=== PATIENT | female | born 1985 | race Caucasian/White ===

== ENCOUNTER 2020-07-01 20:43 | Emergency (ER) | payer SELFPAY ==
[2020-07-01] MEDS ORDERED: TORAdol 30 mg Injection IM ONE (21:00)
[2020-07-01] MEDS ORDERED: Augmentin 875-125 Tablet PO ONE (21:00)
[2020-07-01] MEDS ORDERED: Augmentin 875-125 Tablet ONE (21:03)
[2020-07-01] MEDS ORDERED: TORAdol 30 mg Injection ONE (21:03)
--- NOTE | 2020-07-01 21:06 | ERPHSYRPT ---
- History of Present Illness Time Seen by Provider: 07/01/20 21:01 Source: patient Exam Limitations: no limitations Physician History: 35 years old female presented in the ER with chief complaint of left ear pain since yesterday. Patient woke up with some irritation in the ear and removed some wax with a Q-tip and started to have pain. Denies any discharge. No fever or chills reported. Patient is also having swollen left neck gland causing pain in the neck and head, moderate intensity, aggravated with movements of the neck no significant relieving factor. Denies any hearing loss. No sore throat sinus congestion, fever or chills reported. Denies any sick contact. Timing/Duration: abrupt onset, yesterday Severity: moderate ENT Location: ear (L) Prearrival Treatment: no prearrival treatment Associated Symptoms: ear pain (L), headache, neck pain, swollen glands, No cough, No fever, No chills, No ear drainage Allergies/Adverse Reactions: No Known Drug Allergies Allergy (Verified 07/01/20 20:54) Hx Tetanus, Diphtheria Vaccination/Date Given: No Hx Influenza Vaccination/Date Given: No Hx Pneumococcal Vaccination/Date Given: No - Review of Systems Constitutional: No Symptoms Eyes: No Symptoms Ears, Nose, & Throat: Ear Pain Respiratory: No Symptoms Cardiac: No Symptoms Abdominal/Gastrointestinal: No Symptoms Genitourinary Symptoms: No Symptoms Musculoskeletal: No Symptoms Skin: No Symptoms Neurological: No Symptoms Endocrine: No Symptoms - Past Medical History Pertinent Past Medical History: Yes Neurological History: No Pertinent History ENT History: No Pertinent History Cardiac History: No Pertinent History Respiratory History: No Pertinent History Endocrine Medical History: No Pertinent History Musculoskeletal History: No Pertinent History GI Medical History: No Pertinent History History: No Pertinent History Psycho-Social History: No Pertinent History Female Reproductive Disorders: No Pertinent History Other Medical History: polycystic ovarys - Past Surgical History Past Surgical History: No Neuro Surgical History: No Pertinent History Cardiac: No Pertinent History Respiratory: No Pertinent History Gastrointestinal: No Pertinent History Genitourinary: No Pertinent History Musculoskeletal: No Pertinent History Female Surgical History: No Pertinent History Other Surgical History: left knee surgery - Social History Smoking Status: Current every day smoker How long have you smoked: 18 Exposure to second hand smoke: Yes Drug Use: marijuana Patient Lives Alone: No - Physical Exam General Appearance: no apparent distress, alert Eye Exam: bilateral eye: normal inspection, PERRL, EOMI Ear Exam: right ear: canal normal, TM normal, left ear: erythema, swelling, tenderness, TM red, bilateral ear: auricle normal Nasal Exam: normal inspection Throat Exam: normal, pharynx normal Neck Exam: normal inspection, supple, full range of motion, lymphadenopathy (L) Cardiovascular/Respiratory Exam: chest non-tender, normal breath sounds, regular rate/rhythm Neurologic Exam: alert, oriented x 3, cooperative, water filter cleaner II-XII nml as tested, normal mood/affect Skin Exam: normal color SpO2 Interpretation: normal O2 Delivery: Room Air - Progress Progress: pain not gone completely Progress Note: 07/01/20 21:03 Has left otitis media and mild irritation of external canal but no signs of otitis externa. She is given Toradol and started on Augmentin. Outpatient follow-up recommended. Counseled pt/family regarding: diagnosis, need for follow-up - Departure Departure Disposition: Home Clinical Impression: Acute otitis media Qualifiers: Otitis media type: unspecified Qualified Code(s): H66.90 - Otitis media, unspecified, unspecified ear Condition: Stable Critical Care Time: No Referrals: JESSICA GALLEGO [Primary Care Provider] - Follow Up with PCP/3 days Instructions: Serous Otitis Media (DC) Additional Instructions: Use Tylenol/ibuprofen as needed. Follow-up with primary care physician for reevaluation. Return to ER for any worsening. Prescriptions: Ibuprofen 600 mg PO Q6HPRN PRN 10 Days #20 tablet PRN Reason: Pain Amox Tr/Potass Clav. 875 mg [Augmentin 875-125 Tablet] 875 mg PO BID 10 Days #20 tablet
[2020-07-01 21:14] VITALS: BP 119/82; PULSE 65; O2SAT 98
== END 2020-07-01 21:21 | disposition home or self-care (01) ==
LOC: ED 20:43
DX: H66.92 Otitis media, unspecified, left ear (principal)
CPT/HCPCS: 96372; 99283; J1885; A9270-GY

== ENCOUNTER 2021-04-16 18:20 | Emergency (ER) | payer OTHER ==
--- NOTE | 2021-04-16 18:23 | ERPHSYRPT ---
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 She recalls working and it being very hot. The next thing she knew she woke up and people around her asking her questions. Patient states that she feels well now. Patient denies chest pain. She denies abdominal pain. She has no shortness of breath. She has no visual changes. She is not on any anticoagulation therapy. Occurred: just prior to arrival Severity: mild Head Injury Location: occipital Method of Injury: fell Loss of Consciousness: brief (seconds) Associated Symptoms: denies symptoms Allergies/Adverse Reactions: No Known Drug Allergies Allergy (Verified 07/01/20 20:54) Home Medications: No Reportable Medications [No Reported Medications] 04/16/21 [History] Hx Tetanus, Diphtheria Vaccination/Date Given: No Hx Influenza Vaccination/Date Given: No Hx Pneumococcal Vaccination/Date Given: No Travel Risk - International Travel Have you traveled outside of the country in past 3 weeks: No - Coronavirus Screening Are you exhibiting any of the following symptoms?: No Close contact with a COVID-19 positive Pt in past 14-21 Days: No - Review of Systems Constitutional: No Symptoms Eyes: No Symptoms Ears, Nose, & Throat: No Symptoms Respiratory: No Symptoms Cardiac: No Symptoms Abdominal/Gastrointestinal: No Symptoms Genitourinary Symptoms: No Symptoms Musculoskeletal: No Symptoms Skin: No Symptoms Neurological: Headache Psychological: No Symptoms Endocrine: No Symptoms Hematologic/Lymphatic: No Symptoms Immunological/Allergic: No Symptoms All Other Systems: Reviewed and Negative - Past Medical History Pertinent Past Medical History: Yes Neurological History: No Pertinent History ENT History: No Pertinent History Cardiac History: No Pertinent History Respiratory History: No Pertinent History Endocrine Medical History: No Pertinent History Musculoskeletal History: No Pertinent History GI Medical History: No Pertinent History History: No Pertinent History Psycho-Social History: No Pertinent History Female Reproductive Disorders: No Pertinent History Other Medical History: polycystic ovarys - Past Surgical History Past Surgical History: No Neuro Surgical History: No Pertinent History Cardiac: No Pertinent History Respiratory: No Pertinent History Gastrointestinal: No Pertinent History Genitourinary: No Pertinent History Musculoskeletal: No Pertinent History Female Surgical History: No Pertinent History Other Surgical History: left knee surgery - Social History Smoking Status: Current every day smoker How long have you smoked: 18 Exposure to second hand smoke: Yes Drug Use: marijuana Patient Lives Alone: No - Nursing Vital Signs Nursing Vital Signs: Initial Vital Signs Temperature 97.5 F 04/16/21 18:26 Pulse Rate 62 04/16/21 18:26 Respiratory Rate 20 04/16/21 18:26 Blood Pressure 111/77 04/16/21 18:26 O2 Sat by Pulse Oximetry 98 04/16/21 18:26 Pain Scale Pain Intensity 3 - [place] Coma Score Best Eye Response ([place]): (4) open spontaneously Best Verbal Response ([place]): (5) oriented Best Motor Response ([place]): (6) obeys commands [place] Total: 15 - Physical Exam General Appearance: no apparent distress, alert, anxiety Head Injury: no evidence of injury Eye Exam: bilateral eye: normal inspection, PERRL, EOMI ENT Exam: airway nml, nml ext.inspection, No evidence of ENT injury Neck Exam: supple, trachea midline, full range of motion, normal alignment, n ormal inspection Cardiovascular/Respiratory Exam: chest non-tender, no respiratory distress Gastrointestinal/Abdominal Exam: soft, non tender, no distention, no mass, no guarding, no ecchymosis, no organomegaly, no pulsatile mass, normal bowel sounds Pelvic Exam: not done Rectal Exam: not done Back Exam: normal inspection, normal range of motion, No CVA tenderness, No vertebral tenderness Extremity Exam: non-tender, normal range of motion, normal inspection, normal capillary refill, no calf tenderness, no pedal edema, pelvis stable Mental Status Exam: alert, oriented x 3, 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 There is no comparison EKG available.) Ordered Tests: Active Orders 24 hr Category Date Time Status Clean Catch Urine Specimen STAT Care 04/16/21 18:51 Active EKG-ER Only STAT Care 04/16/21 18:51 Active IV Insertion STAT Care 04/16/21 18:51 Active POCT Glucose Check STAT Care 04/16/21 18:51 Active HEAD WITHOUT CONTRAST [CT] Stat Exams 04/16/21 18:51 Taken HCG,QUALITATIVE URINE Stat Lab 04/16/21 19:36 Completed POCT GLUCOSE Stat Lab 04/16/21 19:27 Completed UA W/RFX UR CULTURE Stat Lab 04/16/21 19:36 Completed Urine Triage Profile Stat Lab 04/16/21 19:36 Ordered Medication Summary Discontinued Medications Generic Name Dose Route Start Last Admin Trade Name Freq PRN Reason Stop Dose Admin Sodium Chloride 1,000 mls @ 999 mls/hr 04/16/21 18:51 04/16/21 19:45 Sodium Chloride 0.9% 1000 Ml IV 04/16/21 19:51 Not Given .Q1H1M STA Ondansetron HCl 4 mg 04/16/21 18:51 04/16/21 19:44 Zofran 4 Mg/2 Ml Vial IV 04/16/21 18:52 Not Given STAT ONE Lab/Rad Data: Laboratory Results 04/16/21 04/16/21 04/16/21 Range/Units 19:36 19:36 19:27 POC Glucometer 93 (74 to 106) mg/dL Urine Color STRAW (YELLOW) Urine Appearance CLEAR (CLEAR) Urine pH 6.0 (5-6) Ur Specific [place] 1.004 (1.005-1.025) Urine Protein NEGATIVE (Negative) Urine Ketones NEGATIVE (NEGATIVE) Urine Blood NEGATIVE (0-5) Tahir/ul Urine Nitrite NEGATIVE (NEGATIVE) Urine Bilirubin NEGATIVE (NEGATIVE) Urine Urobilinogen NEGATIVE (0-1) mg/dL Ur Leukocyte Esterase NEGATIVE (NEGATIVE) Urine WBC (Auto) 0-2 (0-5) /HPF Urine RBC (Auto) 0-2 (0-2) /HPF U Epithel Cells (Auto) RARE (FEW) /HPF Urine Bacteria (Auto) RARE (NEGATIVE) /HPF Urine Culture Reflexed NO (NO) Urine Glucose NEGATIVE (NEGATIVE) mg/dL Urine HCG, Qual NEGATIVE (Negative) - Progress Progress: improved, re-examined Progress Note: 04/16/21 19:25 This patient had IV attempted on 2 different occasions. She now declines any more attempts. She does not want any blood drawn. She does agree to provide a urine for urinalysis and test. She also will allow us to obtain a [id number] glucose level. 04/16/21 19:57 CAT scan of the head without contrast shows a small left posterior scalp hematoma otherwise normal and no evidence of any intracranial abnormalities Counseled pt/family regarding: lab results, diagnosis, need for follow-up, rad results - Departure Departure Disposition: Home Clinical Impression: Syncope, Head injury, Scalp hematoma Condition: Stable Critical Care Time: No Referrals: JESSICA GALLEGO [Primary Care Provider] - Additional Instructions: Use Tylenol ibuprofen for pain control. Drink plenty of fluids. Return to the emergency department if nausea and vomiting is present, dizziness is present, severe headache is present. Follow-up with your primary care physician if you have a persistent headache.
[2021-04-16 18:34] VITALS: PULSE 62; O2SAT 98
[2021-04-16] MEDS ORDERED: Zofran 4 MG/2 ML VIAL IV ONE (18:51)
[2021-04-16] MEDS ORDERED: Sodium Chloride 0.9% 1000 ML 1,000 ML IV STA (18:51)
[2021-04-16 19:43] VITALS: BP 104/49
[2021-04-16 19:53] LABS: Appearance CLEAR (CLEAR); Bacteria RARE /HPF (NEGATIVE); Bilirubin NEGATIVE (NEGATIVE); Blood NEGATIVE Ery/ul (0-5); Epithelial Cells RARE /HPF (FEW); Glucose NEGATIVE (NEGATIVE); Ketones NEGATIVE (NEGATIVE); Leukocyte Esterase NEGATIVE (NEGATIVE); Nitrite NEGATIVE (NEGATIVE); Protein,Urine Dip NEGATIVE (Negative); RBC 0-2 /HPF (0-2); Specific Gravity 1.004 (1.005-1.025); Urobilinogen NEGATIVE mg/dL (0-1); WBC 0-2 /HPF (0-5)
[2021-04-16 20:06] LABS: Amphetamine,Urine NEGATIVE (NEGATIVE); Barbiturate,Urine NEGATIVE (NEGATIVE); Benzodiazepine,Urine NEGATIVE (NEGATIVE); Cocaine,Urine NEGATIVE (NEGATIVE); Methadone,Urine NEGATIVE (NEGATIVE); Opiate,Urine NEGATIVE (NEGATIVE); PCP,Urine NEGATIVE (NEGATIVE); THC,Urine NEGATIVE (NEGATIVE)
--- NOTE | 2021-04-17 08:44 | XRAY ---
Indication: Posterior head injury following syncopal episode. Multiple contiguous axial images obtained through the head without contrast. Comparison: None. Left posterior head demonstrates small scalp hematoma near the vertex. Normal appearing brain parenchyma, ventricles, and bony calvarium. Visualized paranasal sinuses and mastoid air cells are clear. Impression: Left posterior scalp hematoma. No underlying fracture or acute intracranial abnormalities.
== END 2021-04-16 20:05 | disposition home or self-care (01) ==
LOC: ED 18:20
DX: R55 Syncope and collapse (principal); S00.03XA Contusion of scalp, initial encounter; W18.39XA Other fall on same level, initial encounter; Y93.89 Activity, other specified; Y92.89 Other specified places as the place of occurrence of the external cause; Y99.0 Civilian activity done for income or pay
CPT/HCPCS: 70450; 80307; 81001; 82947; 84703; 93005; 99284

== ENCOUNTER 2022-11-20 20:23 | Emergency (ER) | payer OTHER, SELFPAY ==
[2022-11-20 20:43] VITALS: O2SAT 98
--- NOTE | 2022-11-20 21:15 | ERPHSYRPT ---
- History of Present Illness Time Seen by Provider: 11/20/22 20:30 Source: patient, [employer] Patient Subjective Stated Complaint: pt states I have been lifting heavy shelves and mats. I think I over did it. I have done this once before Triage Nursing Assessment: pt ambulated into the er; pt is axo x4; c/o rt shoulder pain; good ROM; strong rt radial pulse; good cap refill to RUE; no respiratory distress present; skin PDW; vitals wnl Physician History: Patient here with acute on chronic right shoulder pain. Patient states that whenever she starts lifting heavy objects she feels that she gets pain. States that she currently has been doing some overhead stuff at work. Therefore having pain. No other falls or trauma. No fever no chills. No nausea no vomiting. Patient has no chest pain, shortness of breath. States it is all mechanical and reproducible. Timing/Duration: other Severity: moderate Modifying Factors: Improves With: other Allergies/Adverse Reactions: No Known Drug Allergies Allergy (Verified 11/20/22 20:31) Hx Tetanus, Diphtheria Vaccination/Date Given: Yes Hx Influenza Vaccination/Date Given: No Hx Pneumococcal Vaccination/Date Given: No Immunizations Up to Date: No Travel Risk - International Travel Have you traveled outside of the country in past 3 weeks: No - Coronavirus Screening Are you exhibiting any of the following symptoms?: No Close contact with a COVID-19 positive Pt in past 14-21 Days: No - Vaccine Status Have you recieved a Covid-19 vaccination: Yes [place]: [employer] - Vaccination Dates Date of 2cond Vaccination (if applicable): 02/2021 - Review of Systems Constitutional: No Fever, No Chills Eyes: No Symptoms Ears, Nose, & Throat: No Symptoms Respiratory: No Cough, No Dyspnea Cardiac: No Chest Pain, No Edema, No Syncope Abdominal/Gastrointestinal: No Abdominal Pain, No Nausea, No Vomiting, No Diarrhea Genitourinary Symptoms: No Dysuria Musculoskeletal: Other (right shoulder pain), No Back Pain, No Neck Pain Skin: No Rash Neurological: No Dizziness, No Focal Weakness, No Sensory Changes Psychological: No Symptoms Endocrine: No Symptoms All Other Systems: Reviewed and Negative - Past Medical History Pertinent Past Medical History: Yes Neurological History: No Pertinent History, Migraines ENT History: No Pertinent History Cardiac History: No Pertinent History Respiratory History: No Pertinent History, Asthma, Bronchitis Endocrine Medical History: No Pertinent History Musculoskeletal History: No Pertinent History GI Medical History: No Pertinent History, GERD History: No Pertinent History Psycho-Social History: No Pertinent History, Anxiety, Attention Deficit Disorder Female Reproductive Disorders: No Pertinent History Other Medical History: 1 natural - Past Surgical History Past Surgical History: Yes Neuro Surgical History: No Pertinent History Cardiac: No Pertinent History Respiratory: No Pertinent History Gastrointestinal: No Pertinent History Genitourinary: No Pertinent History Musculoskeletal: No Pertinent History Female Surgical History: No Pertinent History Other Surgical History: L knee sx - Social History Smoking Status: Current every day smoker How long have you smoked: 16 Exposure to second hand smoke: Yes Drug Use: marijuana Patient Lives Alone: No - Female History Hx Now: No - Nursing Vital Signs Nursing Vital Signs: Initial Vital Signs Temperature 97.6 F 11/20/22 20:34 Pulse Rate 67 11/20/22 20:34 Respiratory Rate 16 11/20/22 20:34 Blood Pressure 113/76 11/20/22 20:34 O2 Sat by Pulse Oximetry 98 11/20/22 20:34 Pain Scale Pain Intensity 4 - Physical Exam General Appearance: no apparent distress, alert Eye Exam: PERRL/EOMI, eyes nml inspection Ears, Nose, Throat Exam: normal ENT inspection, TMs normal, pharynx normal, moist mucous membranes Neck Exam: normal inspection, non-tender, supple, full range of motion Respiratory Exam: normal breath sounds, lungs clear, No respiratory distress Cardiovascular Exam: regular rate/rhythm, normal heart sounds, normal peripheral pulses Gastrointestinal/Abdomen Exam: soft, normal bowel sounds, No tenderness, No mass Back Exam: normal inspection, normal range of motion, No CVA tenderness, No vertebral tenderness Extremity Exam: normal range of motion, pelvis stable, other Neurologic Exam: alert, oriented x 3, cooperative, normal mood/affect, nml cerebellar function, nml station & gait, sensation nml, No motor deficits Skin Exam: normal color, warm, dry, No rash Lymphatic Exam: No adenopathy SpO2 Interpretation: normal SpO2: 98 Comments: 11/20/22 21:26 Patient has some minimal right shoulder tenderness. No obvious deformity, s ensation intact, 2+ capillary refill, 2 point tactile discrimination intact. 5 out of 5 strength. Full range of motion without pain. Compartments are soft, nontender. Overlying skin shows no tenting, bruising, ecchymosis. - Course Nursing assessment & vital signs reviewed: Yes Ordered Tests: Active Orders 24 hr Category Date Time Status SHOULDER Stat Exams 11/20/22 20:45 Taken - Progress Progress: improved Progress Note: 11/20/22 21:26 And x-ray was ordered. This demonstrated no obvious fractures, dislocations. Most likely musculoskeletal pain versus small rotator cuff tear. Will discharge patient home at this point in time. She may return here sooner for any new or changing symptoms. Plan for discharge home. Counseled pt/family regarding: diagnosis, need for follow-up, rad results - Departure Departure Disposition: Home Clinical Impression: Right shoulder pain Condition: Good Critical Care Time: No Referrals: JESSICA ANTONIO [Primary Care Provider] - Follow up/PCP as directed Instructions: Shoulder Sprain (DC)
[2022-11-20 21:29] VITALS: BP 131/61; PULSE 64
--- NOTE | 2022-11-21 09:20 | XRAY ---
Indication: Pain. Comparison: None 3 view right shoulder obtained. No bony, articular, or soft tissue abnormalities.
== END 2022-11-20 21:29 | disposition home or self-care (01) ==
LOC: ED 20:23
DX: M25.511 Pain in right shoulder (principal); Z72.0 Tobacco use
CPT/HCPCS: 73030; 99282

== ENCOUNTER 2023-01-31 17:44 | Emergency (ER) | payer OTHER ==
[2023-01-31 18:15] VITALS: O2SAT 98
[2023-01-31 18:43] LABS: Appearance Clear (Clear); Bacteria None Seen /HPF (None Seen); Bilirubin Negative (Negative); Blood Negative (Negative); Epithelial Cells Rare /HPF (None Seen); Glucose, Urine Negative (Negative); Ketones Trace (Negative); Leukocyte Esterase Negative (Negative); Nitrite Negative (Negative); Ph 5.5 (4.6-8.0); Protein,Urine Dip Trace (Negative); RBC 0-2 /HPF (0-5); Specific Gravity >=1.030 (1.005-1.030); WBC 0-2 /HPF (0-5)
[2023-01-31 18:45] LABS: ADD URINE CULTURE? NO (NO)
[2023-01-31 18:54] LABS: Amphetamine,Urine NEGATIVE (NEGATIVE); Barbiturate,Urine NEGATIVE (NEGATIVE); Benzodiazepine,Urine NEGATIVE (NEGATIVE); Cocaine,Urine NEGATIVE (NEGATIVE); Methadone,Urine NEGATIVE (NEGATIVE); Opiate,Urine NEGATIVE (NEGATIVE); PCP,Urine NEGATIVE (NEGATIVE); THC,Urine NEGATIVE (NEGATIVE)
[2023-01-31 18:57] LABS: Absolute Neutrophil Ct (ANC) 4.63 x10^3/uL (1.4-6.9); BASOPHIL % 0.7 % (0.0-0.4); Basophil (Absolute #) 0.05 x10^3/uL (0-0.4); Eosinophil % 4.1 % (0.00-5.0); Eosinophil (Absolute #) 0.31 x10^3/uL (0-0.5); Hematocrit 39.7 % (35-47); Hemoglobin 13.5 g/dL (12.0-16.0); IMMATURE GRAN # 0.03 x10^3u/L (0.00-0.03); IMMATURE GRAN % 0.4 % (0.00-0.4); Lymphocyte (Absolute #) 2.24 x10^3/uL (1.0-4.6); Lymphocytes % 29.3 % (24.0-44.0); Mean Cell Volume 93.4 fL (78-100); Mean Corpuscular Hemoglobin 31.8 pg (26-32); Mean Platelet Volume 10.2 fL (7.5-11.0); Monocyte (Absolute #) 0.38 x10^3/uL (0.0-1.3); Neutrophil % 60.5 % (36.0-66.0); Platelet Count 214 x10^3/uL (150-450); Red Blood Count 4.25 x10^6/uL (4.1-5.4); Red Cell Distribution Width 13.3 % (11.5-14.0); White Blood Count 7.6 x10^3/uL (4.0-10.5)
[2023-01-31 19:12] LABS: HCG SERUM TEST NEGATIVE (NEGATIVE)
[2023-01-31 19:14] LABS: ACETAMINOPHEN < 10 ug/ml (10-30); ALBUMIN 4.1 g/dL (3.5-5.0); ALKALINE PHOSPHATASE 60 U/L (38-126); ANION GAP 13.6 MEQ/L (5-15); BLOOD UREA NITROGEN 14 mg/dL (7-17); CHLORIDE 104 mmol/L (98-107); Carbon Dioxide 27 mmol/L (22-30); Creatinine 1 0.88 mg/dL (0.52-1.04); EST GLOMERULAR FILTRATION RATE > 60.0 ML/MIN; ETHYL ALCOHOL < 10 mg/dL (0-10); Glucose 110 mg/dL (74-106); Potassium 3.5 mmol/L (3.5-5.1); SALICYLATE < 1.0 mg/dL (2-20); SGOT/AST 24 U/L (14-36); SGPT/ALT 17 U/L (0-35); SODIUM 141 mmol/L (137-145); Total Protein 7.1 g/dL (6.3-8.2)
[2023-01-31 19:17] VITALS: PULSE 78
--- NOTE | 2023-01-31 19:19 | ERPHSYRPT ---
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 Triage Nursing Assessment: pt is alert and oriented, able to answer questions appropriatly and states that she is willing to get help. Physician History: 37yo WF w suicidal thoughts x 2 yrs. Wants to "slit her wrist". Pt states p roblems related to her ex-. She has not seen a mental health therapist. Pt used methamphetamine until 6 years ago. She is accompanied by her present and denies domestic abuse. No homicidal thoughts present. Timing/Duration: other (2 years) Severity of Symptoms-Max: moderate Severity of Symptoms-Current: moderate Context related to: other (Ex-) Suicidal thoughts: specific plan (Slit wrists) Associated Symptoms: suicidal ideation Previous symptoms: same symptoms as today Allergies/Adverse Reactions: No Known Drug Allergies Allergy (Verified 11/20/22 20:31) Hx Tetanus, Diphtheria Vaccination/Date Given: Yes Hx Influenza Vaccination/Date Given: No Hx Pneumococcal Vaccination/Date Given: No Travel Risk - International Travel Have you traveled outside of the country in past 3 weeks: No - Coronavirus Screening Are you exhibiting any of the following symptoms?: No Close contact with a COVID-19 positive Pt in past 14-21 Days: No - Vaccine Status Have you recieved a Covid-19 vaccination: Yes [employer]: [employer] - Vaccination Dates Date of 2cond Vaccination (if applicable): 02/2021 - Past Medical History Pertinent Past Medical History: Yes Neurological History: No Pertinent History, Migraines ENT History: No Pertinent History Cardiac History: No Pertinent History Respiratory History: No Pertinent History, Asthma, Bronchitis Endocrine Medical History: No Pertinent History Musculoskeletal History: No Pertinent History GI Medical History: No Pertinent History, GERD History: No Pertinent History Psycho-Social History: No Pertinent History, Anxiety, Attention Deficit Disorder Female Reproductive Disorders: No Pertinent History Other Medical History: 1 natural - Past Surgical History Past Surgical History: Yes Neuro Surgical History: No Pertinent History Cardiac: No Pertinent History Respiratory: No Pertinent History Gastrointestinal: No Pertinent History Genitourinary: No Pertinent History Musculoskeletal: No Pertinent History Female Surgical History: No Pertinent History Other Surgical History: L knee sx - Social History Smoking Status: Current every day smoker How long have you smoked: 16 Exposure to second hand smoke: Yes Drug Use: none Patient Lives Alone: No - Female History Hx Last Menstrual Period: 01/28/23 Hx Now: No - Review of Systems Constitutional: No Symptoms Eyes: No Symptoms Ears, Nose, & Throat: No Symptoms Respiratory: No Symptoms Cardiac: No Symptoms Abdominal/Gastrointestinal: No Symptoms Genitourinary Symptoms: No Symptoms Musculoskeletal: No Symptoms Skin: No Symptoms Neurological: No Symptoms Psychological: Suicidal Ideations Endocrine: No Symptoms Hematologic/Lymphatic: No Symptoms Immunological/Allergic: No Symptoms - Nursing Vital Signs Nursing Vital Signs: Initial Vital Signs Temperature 97.6 F 01/31/23 17:58 Pulse Rate 86 01/31/23 17:58 Respiratory Rate 18 01/31/23 17:58 Blood Pressure 129/104 01/31/23 17:58 O2 Sat by Pulse Oximetry 98 01/31/23 17:58 Pain Scale Pain Intensity 0 Hypertensive - Physical Exam General Appearance: no apparent distress Eyes, Ears, Nose, Throat Exam: normal ENT inspection, TMs normal, pharynx normal Neck Exam: normal inspection, non-tender, supple, full range of motion, No Brudzinski, No Kernig's, No meningismus Respiratory Exam: normal breath sounds, lungs clear, airway intact, No respiratory distress Cardiovascular Exam: regular rate/rhythm, normal heart sounds, normal peripheral pulses, No murmur Gastrointestinal/Abdominal Exam: soft, normal bowel sounds Extremities Exam: normal inspection Peripheral Pulses: carotid (R): 2+, carotid (L): 2+ Current Suicidality: has suicide plan Neurological Exam: alert, normal mood/affect, calm, sole stitcher hand II-XII nml as tested, oriented x 3 Appearance: appropriate appearance, appropriate insight Behavior/Eye Contact/Speech: alert & cooperative Thoughts/Hallucinations: normal thought pattern, no apparent hallucination, No auditory hallucinations Skin Exam: normal color, warm, dry SpO2 Interpretation: normal SpO2: 98 O2 Delivery: Room Air - Course Nursing assessment & vital signs reviewed: Yes Ordered Tests: Active Orders 24 hr Category Date Time Status ACETAMINOPHEN Stat Lab 01/31/23 18:49 Completed CBC W DIFF Stat Lab 01/31/23 18:49 Completed CMP Stat Lab 01/31/23 18:49 Completed ETHYL ALCOHOL Stat Lab 01/31/23 18:49 Completed HCG QUALITATIVE, SERUM Stat Lab 01/31/23 18:57 Completed SALICYLATE Stat Lab 01/31/23 18:49 Completed UA W/RFX UR CULTURE Stat Lab 01/31/23 18:21 Completed Urine Triage Profile Stat Lab 01/31/23 18:21 Completed Lab/Rad Data: Laboratory Result Diagrams 01/31/23 18:49 01/31/23 18:49 Laboratory Results 01/31/23 01/31/23 01/31/23 Range/Units Unknown 18:57 18:49 WBC (4.0-10.5) x10^3/uL RBC (4.1-5.4) x10^6/uL Hgb (12.0-16.0) g/dL Hct (35-47) % MCV (78-100) fL MCH (26-32) pg MCHC (32-36) g/dL RDW (11.5-14.0) % Plt Count (150-450) x10^3/uL MPV (7.5-11.0) fL Gran % (36.0-66.0) % Immature Gran % (Auto) (0.00-0.4) % Nucleat RBC Rel Count (0.00-0.1) % Eos # (Auto) (0-0.5) x10^3/uL Immature Gran # (Auto) (0.00-0.03) x10^3u/L Absolute Lymphs (auto) (1.0-4.6) x10^3/uL Absolute Monos (auto) (0.0-1.3) x10^3/uL Absolute Nucleated RBC (0.00-0.01) x10^3u/L Lymphocytes % (24.0-44.0) % Monocytes % (0.0-12.0) % Eosinophils % (0.00-5.0) % Basophils % (0.0-0.4) % Absolute Granulocytes (1.4-6.9) x10^3/uL Basophils # (0-0.4) x10^3/uL Sodium 141 (137-145) mmol/L Potassium 3.5 (3.5-5.1) mmol/L Chloride 104 (98-107) mmol/L Carbon Dioxide 27 (22-30) mmol/L Anion Gap 13.6 (5-15) MEQ/L BUN 14 (7-17) mg/dL Creatinine 0.88 (0.52-1.04) mg/dL Estimated GFR > 60.0 ML/MIN Glucose 110 H (74-106) mg/dL Calcium 9.0 (8.4-10.2) mg/dL Total Bilirubin 0.50 (0.2-1.3) mg/dL AST 24 (14-36) U/L ALT 17 (0-35) U/L Alkaline Phosphatase 60 (38-126) U/L Serum Total Protein 7.1 (6.3-8.2) g/dL Albumin 4.1 (3.5-5.0) g/dL Serum HCG, Qual NEGATIVE (NEGATIVE) Urine Color (Yellow) Urine Appearance (Clear) Urine pH (4.6-8.0) Ur Specific [place] (1.005-1.030) Urine Protein (Negative) Urine Glucose (UA) (Negative) mg/dL Urine Ketones (Negative) Urine Blood (Negative) Urine Nitrite (Negative) Urine Bilirubin (Negative) Urine Urobilinogen (0.2) mg/dL Ur Leukocyte Esterase (Negative) U Hyaline Cast (Auto) (0-2) /LPF Urine Microscopic RBC (0-5) /HPF Urine Microscopic WBC (0-5) /HPF Ur Epithelial Cells (None Seen) /HPF Urine Bacteria (None Seen) /HPF Urine Culture Reflexed (NO) Salicylates < 1.0 L (2-20) mg/dL Urine Opiates Level (NEGATIVE) Ur Methadone (NEGATIVE) Acetaminophen < 10 L (10-30) ug/ml Urine Barbiturates (NEGATIVE) Ur Phencyclidine (PCP) (NEGATIVE) Urine Amphetamine (NEGATIVE) U Benzodiazepine Level (NEGATIVE) Urine Cocaine (NEGATIVE) Urine Marijuana (THC) (NEGATIVE) Ethyl Alcohol < 10 (0-10) mg/dL Influenza Type A Ag NEGATIVE (NEGATIVE) Influenza Type B Ag NEGATIVE (NEGATIVE) RSV (PCR) NEGATIVE (NEGATIVE) SARS-CoV-2 (PCR) NEGATIVE (NEGATIVE) 01/31/23 01/31/23 01/31/23 Range/Units 18:49 18:21 18:21 WBC 7.6 (4.0-10.5) x10^3/uL RBC 4.25 (4.1-5.4) x10^6/uL Hgb 13.5 (12.0-16.0) g/dL Hct 39.7 (35-47) % MCV 93.4 (78-100) fL MCH 31.8 (26-32) pg MCHC 34.0 (32-36) g/dL RDW 13.3 (11.5-14.0) % Plt Count 214 (150-450) x10^3/uL MPV 10.2 (7.5-11.0) fL Gran % 60.5 (36.0-66.0) % Immature Gran % (Auto) 0.4 (0.00-0.4) % Nucleat RBC Rel Count 0.0 (0.00-0.1) % Eos # (Auto) 0.31 (0-0.5) x10^3/uL Immature Gran # (Auto) 0.03 (0.00-0.03) x10^3u/L Absolute Lymphs (auto) 2.24 (1.0-4.6) x10^3/uL Absolute Monos (auto) 0.38 (0.0-1.3) x10^3/uL Absolute Nucleated RBC 0.00 (0.00-0.01) x10^3u/L Lymphocytes % 29.3 (24.0-44.0) % Monocytes % 5.0 (0.0-12.0) % Eosinophils % 4.1 (0.00-5.0) % Basophils % 0.7 (0.0-0.4) % Absolute Granulocytes 4.63 (1.4-6.9) x10^3/uL Basophils # 0.05 (0-0.4) x10^3/uL Sodium (137-145) mmol/L Potassium (3.5-5.1) mmol/L Chloride (98-107) mmol/L Carbon Dioxide (22-30) mmol/L Anion Gap (5-15) MEQ/L BUN (7-17) mg/dL Creatinine (0.52-1.04) mg/dL Estimated GFR ML/MIN Glucose (74-106) mg/dL Calcium (8.4-10.2) mg/dL Total Bilirubin (0.2-1.3) mg/dL AST (14-36) U/L ALT (0-35) U/L Alkaline Phosphatase (38-126) U/L Serum Total Protein (6.3-8.2) g/dL Albumin (3.5-5.0) g/dL Serum HCG, Qual (NEGATIVE) Urine Color Dark Yellow A (Yellow) Urine Appearance Clear (Clear) Urine pH 5.5 (4.6-8.0) Ur Specific [place] >=1.030 A (1.005-1.030) Urine Protein Trace A (Negative) Urine Glucose (UA) Negative (Negative) mg/dL Urine Ketones Trace A (Negative) Urine Blood Negative (Negative) Urine Nitrite Negative (Negative) Urine Bilirubin Negative (Negative) Urine Urobilinogen 1.0 A (0.2) mg/dL Ur Leukocyte Esterase Negative (Negative) U Hyaline Cast (Auto) 3-5 A (0-2) /LPF Urine Microscopic RBC 0-2 (0-5) /HPF Urine Microscopic WBC 0-2 (0-5) /HPF Ur Epithelial Cells Rare (None Seen) /HPF Urine Bacteria None Seen (None Seen) /HPF Urine Culture Reflexed NO (NO) Salicylates (2-20) mg/dL Urine Opiates Level NEGATIVE (NEGATIVE) Ur Methadone NEGATIVE (NEGATIVE) Acetaminophen (10-30) ug/ml Urine Barbiturates NEGATIVE (NEGATIVE) Ur Phencyclidine (PCP) NEGATIVE (NEGATIVE) Urine Amphetamine NEGATIVE (NEGATIVE) U Benzodiazepine Level NEGATIVE (NEGATIVE) Urine Cocaine NEGATIVE (NEGATIVE) Urine Marijuana (THC) NEGATIVE (NEGATIVE) Ethyl Alcohol (0-10) mg/dL Influenza Type A Ag (NEGATIVE) Influenza Type B Ag (NEGATIVE) RSV (PCR) (NEGATIVE) SARS-CoV-2 (PCR) (NEGATIVE) - Progress Progress Note: 01/31/23 21:14 Nursing note and vital signs reviewed No food or housing insecurities noted All lab results reviewed and shared w pt Additional history per current [facility] consulted and recommended discharge w safety plan Pt ok w outpt follow up and wants her sandwich before discharge 01/31/23 21:18 Counseled pt/family regarding: lab results, diagnosis, need for follow-up Medical Desision Making - Independent Historian Additional History obtained from: Spouse - Discussion of managment Care discussed with:: specialist Agreed on:: Treatment plan, need for follow-up - Social Determinants of Health Pt's dx & treatment plan are significantly limited by SDOH: Unemployed - Diagnostic Testing Diagnostic test were ordered, analyzed, and reviewed by me: Yes - Risk of complications Low Risk: Low risk of morbidity from additional dx testing or treatment - Departure Departure Disposition: Home Clinical Impression: Depression Condition: Stable Critical Care Time: No Referrals: JESSICA ANTONIO [Primary Care Provider] - Follow up/PCP as directed Instructions: Depression, Adult (DC) Additional Instructions: Follow up with the [facility] Return to ER for worsening of condition
[2023-01-31 20:57] LABS: INFLUENZA A NEGATIVE (NEGATIVE); INFLUENZA B NEGATIVE (NEGATIVE); RESPIRATORY SYNCTIAL VIRUS NEGATIVE (NEGATIVE); SARS-CoV-2 Xpert Express NEGATIVE (NEGATIVE)
[2023-01-31 21:17] VITALS: BP 105/80
== END 2023-01-31 21:40 | disposition home or self-care (01) ==
LOC: ED 17:44
DX: F32.A Depression, unspecified (principal); R45.851 Suicidal ideations; Z63.5 Disruption of family by separation and divorce; Z56.0 Unemployment, unspecified; Z72.0 Tobacco use
CPT/HCPCS: 0241U; 36415; 80053; 80143; 80179; 80307; 81001; 82077; 84703; 85025; 99283

== ENCOUNTER 2023-06-25 22:43 | Emergency (ER) | payer OTHER ==
[2023-06-25 23:07] VITALS: TEMP 98.1
[2023-06-26 00:10] VITALS: O2SAT 98
--- NOTE | 2023-06-26 00:22 | ERPHSYRPT ---
- History of Present Illness Time Seen by Provider: 06/26/23 00:18 Historian: patient Patient Subjective Stated Complaint: pt states she has been having intermittent pain in her pelvis radiating up into her abd at times Triage Nursing Assessment: pt alert and oriented, answers questions approp. pt ambulates into room with steady gait noted. respriations nonlabored. skin warm and dry. bowel sounds present x4 quads. Physician History: Patient 38-year-old female presents to our ED for evaluation of intermittent lower abdominal pain that tends to shoot up to her upper abdomen and chest area. Symptoms have been intermittent for approximately 5 days. No active pain at this time. No vaginal discharge or pain. Patient states she feels as though she urinates frequently. No back pain. No nausea vomiting diaphoresis or fever. Patient that she is otherwise healthy. She voices no other complaints or concerns at this time. Portions of this note were created with voice recognition technology. There may be grammatical, spelling, punctuation or sound alike errors Timing/Duration: day(s) (5 days) Activities at Onset: none Quality: cramping Abdominal Pain Onset Location: other (Lower abdomen radiating up to upper abdomen and chest area) Severity of Pain-Max: moderate Severity of Pain-Current: mild Modifying Factors: Improves With: nothing Associated Symptoms: denies symptoms, No diarrhea, No nausea, No vomiting Previous symptoms: no prior history Allergies/Adverse Reactions: No Known Drug Allergies Allergy (Verified 06/25/23 23:07) Home Medications: No Reportable Medications [No Reported Medications] 06/25/23 [History] Hx Tetanus, Diphtheria Vaccination/Date Given: Yes Hx Influenza Vaccination/Date Given: No Hx Pneumococcal Vaccination/Date Given: No Travel Risk - International Travel Have you traveled outside of the country in past 3 weeks: No - Coronavirus Screening Are you exhibiting any of the following symptoms?: No Close contact with a COVID-19 positive Pt in past 14-21 Days: No - Vaccine Status Have you recieved a Covid-19 vaccination: Yes 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: [employer] - Vaccination Dates Date of 2cond Vaccination (if applicable): 02/2021 - Review of Systems Constitutional: No Symptoms, No Fever, No Chills Eyes: No Symptoms Ears, Nose, & Throat: No Symptoms Respiratory: No Symptoms, No Cough, No Dyspnea Cardiac: No Symptoms, No Chest Pain, No Edema, No Syncope Abdominal/Gastrointestinal: No Symptoms, No Abdominal Pain, No Nausea, No Vomiting, No Diarrhea Genitourinary Symptoms: No Symptoms, No Dysuria Musculoskeletal: No Symptoms, No Back Pain, No Neck Pain Skin: No Symptoms, No Rash Neurological: No Symptoms, No Dizziness, No Focal Weakness, No Sensory Changes Psychological: No Symptoms Endocrine: No Symptoms Hematologic/Lymphatic: No Symptoms Immunological/Allergic: No Symptoms All Other Systems: Reviewed and Negative - Past Medical History Pertinent Past Medical History: Yes Neurological History: Migraines ENT History: No Pertinent History Cardiac History: No Pertinent History Respiratory History: No Pertinent History, Asthma, Bronchitis Endocrine Medical History: No Pertinent History Musculoskeletal History: No Pertinent History GI Medical History: GERD History: No Pertinent History Psycho-Social History: No Pertinent History, Anxiety, Attention Deficit Disorder, Depression Female Reproductive Disorders: No Pertinent History Other Medical History: 1 natural - Past Surgical History Past Surgical History: Yes Neuro Surgical History: No Pertinent History Cardiac: No Pertinent History Respiratory: No Pertinent History Gastrointestinal: No Pertinent History Genitourinary: No Pertinent History Musculoskeletal: No Pertinent History Female Surgical History: No Pertinent History Other Surgical History: L knee sx - Social History Smoking Status: Current every day smoker How long have you smoked: 16 Exposure to second hand smoke: Yes Drug Use: none Patient Lives Alone: No - Female History Hx Last Menstrual Period: last week Hx Now: No - Nursing Vital Signs Nursing Vital Signs: Initial Vital Signs Temperature 98.1 F 06/25/23 22:53 Pulse Rate 64 06/25/23 22:53 Respiratory Rate 16 06/25/23 22:53 Blood Pressure 104/68 06/25/23 22:53 O2 Sat by Pulse Oximetry 100 06/25/23 22:53 Pain Scale Pain Intensity 0 - Physical Exam General Appearance: no apparent distress, alert Eye Exam: PERRL/EOMI, eyes nml inspection Ears, Nose, Throat Exam: normal ENT inspection, pharynx normal, moist mucous membranes Neck Exam: normal inspection, non-tender, supple, full range of motion Respiratory Exam: normal breath sounds, lungs clear, airway intact, No respiratory distress Cardiovascular Exam: regular rate/rhythm, normal heart sounds, normal peripheral pulses Gastrointestinal/Abdomen Exam: soft, No tenderness, No mass Pelvic Exam: not done Rectal Exam: deferred Back Exam: normal inspection, normal range of motion, No CVA tenderness, No vertebral tenderness Extremity Exam: normal inspection, normal range of motion, pelvis stable Neurologic Exam: alert, oriented x 3, cooperative, normal mood/affect, nml cerebellar function, sensation nml, No motor deficits Skin Exam: normal color, warm, dry Lymphatic Exam: No adenopathy SpO2 Interpretation: normal SpO2: 98 O2 Delivery: Room Air - Course Nursing assessment & vital signs reviewed: Yes - CT Exams Abdomen/Pelvis CT Interpretation: Tele-radiologist Report (Suggestion of small right ovarian cyst otherwise essentially unremarkable unenhanced CT abdomen pelvis.) Ordered Tests: Active Orders 24 hr Category Date Time Status IV Insertion STAT Care 06/26/23 00:40 Active ABDOMEN AND PELVIS W/0 CONTRAS [CT] Stat Exams 06/26/23 00:52 Completed CBC W DIFF Stat Lab 06/26/23 01:10 Completed CMP Stat Lab 06/26/23 01:10 Completed HCG QUALITATIVE, URINE Stat Lab 06/26/23 00:05 Completed UA W/RFX UR CULTURE Stat Lab 06/26/23 00:25 Completed Lab/Rad Data: Laboratory Result Diagrams 06/26/23 01:10 06/26/23 01:10 Laboratory Results 06/26/23 06/26/23 06/26/23 Range/Units 01:10 01:10 00:25 WBC 7.9 (4.0-10.5) x10^3/uL RBC 3.96 L (4.1-5.4) x10^6/uL Hgb 12.6 (12.0-16.0) g/dL Hct 38.9 (35-47) % MCV 98.2 (78-100) fL MCH 31.8 (26-32) pg MCHC 32.4 (32-36) g/dL RDW 13.2 (11.5-14.0) % Plt Count 253 (150-450) x10^3/uL MPV 9.5 (7.5-11.0) fL Gran % 49.6 (36.0-66.0) % Immature Gran % (Auto) 1.3 H (0.00-0.4) % Nucleat RBC Rel Count 0.0 (0.00-0.1) % Eos # (Auto) 0.58 H (0-0.5) x10^3/uL Immature Gran # (Auto) 0.10 H (0.00-0.03) x10^3u/L Absolute Lymphs (auto) 2.73 (1.0-4.6) x10^3/uL Absolute Monos (auto) 0.50 (0.0-1.3) x10^3/uL Absolute Nucleated RBC 0.00 (0.00-0.01) x10^3u/L Lymphocytes % 34.8 (24.0-44.0) % Monocytes % 6.4 (0.0-12.0) % Eosinophils % 7.4 H (0.00-5.0) % Basophils % 0.5 (0.0-0.4) % Absolute Granulocytes 3.90 (1.4-6.9) x10^3/uL Basophils # 0.04 (0-0.4) x10^3/uL Sodium 137 (137-145) mmol/L Potassium 4.0 (3.5-5.1) mmol/L Chloride 103 (98-107) mmol/L Carbon Dioxide 25 (22-30) mmol/L Anion Gap 13.0 (5-15) MEQ/L BUN 22 H (7-17) mg/dL Creatinine 0.89 (0.52-1.04) mg/dL Estimated GFR > 60.0 ML/MIN Glucose 83 (74-106) mg/dL Calcium 8.5 (8.4-10.2) mg/dL Total Bilirubin 0.30 (0.2-1.3) mg/dL AST 53 H (14-36) U/L ALT 63 H (0-35) U/L Alkaline Phosphatase 85 (38-126) U/L Serum Total Protein 6.7 (6.3-8.2) g/dL Albumin 4.0 (3.5-5.0) g/dL Urine Color Yellow (Yellow) Urine Appearance Clear (Clear) Urine pH 6.5 (4.6-8.0) Ur Specific [place] 1.025 (1.005-1.030) Urine Protein Negative (Negative) Urine Glucose (UA) Negative (Negative) mg/dL Urine Ketones Negative (Negative) Urine Blood Negative (Negative) Urine Nitrite Negative (Negative) Urine Bilirubin Negative (Negative) Urine Urobilinogen 0.2 (0.2) mg/dL Ur Leukocyte Esterase Negative (Negative) U Hyaline Cast (Auto) NONE SEEN (0-2) /LPF Urine Microscopic RBC 0-2 (0-5) /HPF Urine Microscopic WBC 0-2 (0-5) /HPF Ur Epithelial Cells None Seen (None Seen) /HPF Urine Bacteria None Seen (None Seen) /HPF Urine Culture Reflexed NO (NO) Urine HCG, Qual (NEGATIVE) Chlamydia DNA Probe (NEGATIVE) N.gonorrhoeae DNA Probe (NEGATIVE) 06/26/23 06/26/23 Range/Units 00:15 00:05 WBC (4.0-10.5) x10^3/uL RBC (4.1-5.4) x10^6/uL Hgb (12.0-16.0) g/dL Hct (35-47) % MCV (78-100) fL MCH (26-32) pg MCHC (32-36) g/dL RDW (11.5-14.0) % Plt Count (150-450) x10^3/uL MPV (7.5-11.0) fL Gran % (36.0-66.0) % Immature Gran % (Auto) (0.00-0.4) % Nucleat RBC Rel Count (0.00-0.1) % Eos # (Auto) (0-0.5) x10^3/uL Immature Gran # (Auto) (0.00-0.03) x10^3u/L Absolute Lymphs (auto) (1.0-4.6) x10^3/uL Absolute Monos (auto) (0.0-1.3) x10^3/uL Absolute Nucleated RBC (0.00-0.01) x10^3u/L Lymphocytes % (24.0-44.0) % Monocytes % (0.0-12.0) % Eosinophils % (0.00-5.0) % Basophils % (0.0-0.4) % Absolute Granulocytes (1.4-6.9) x10^3/uL Basophils # (0-0.4) x10^3/uL Sodium (137-145) mmol/L Potassium (3.5-5.1) mmol/L Chloride (98-107) mmol/L Carbon Dioxide (22-30) mmol/L Anion Gap (5-15) MEQ/L BUN (7-17) mg/dL Creatinine (0.52-1.04) mg/dL Estimated GFR ML/MIN Glucose (74-106) mg/dL Calcium (8.4-10.2) mg/dL Total Bilirubin (0.2-1.3) mg/dL AST (14-36) U/L ALT (0-35) U/L Alkaline Phosphatase (38-126) U/L Serum Total Protein (6.3-8.2) g/dL Albumin (3.5-5.0) g/dL Urine Color (Yellow) Urine Appearance (Clear) Urine pH (4.6-8.0) Ur Specific [place] (1.005-1.030) Urine Protein (Negative) Urine Glucose (UA) (Negative) mg/dL Urine Ketones (Negative) Urine Blood (Negative) Urine Nitrite (Negative) Urine Bilirubin (Negative) Urine Urobilinogen (0.2) mg/dL Ur Leukocyte Esterase (Negative) U Hyaline Cast (Auto) (0-2) /LPF Urine Microscopic RBC (0-5) /HPF Urine Microscopic WBC (0-5) /HPF Ur Epithelial Cells (None Seen) /HPF Urine Bacteria (None Seen) /HPF Urine Culture Reflexed (NO) Urine HCG, Qual NEGATIVE (NEGATIVE) Chlamydia DNA Probe NOT DETECTED (NEGATIVE) N.gonorrhoeae DNA Probe NOT DETECTED (NEGATIVE) - Progress Progress: improved Progress Note: Patient is a 38-year-old female presents to our ED for evaluation of intermittent shooting pain from her lower abdomen up into her epigastrium. No associated chest pain or shortness of breath. No nausea vomiting or diaphoresis. No active pain at the time of my evaluation. Patient declined pain medication. CT abdomen pelvis revealed a right ovarian cyst. Patient advised that she will need an outpatient ultrasound to further evaluate the right ovarian cyst. CBC CMP nonremarkable. GC chlamydia negative. hCG negative. Urinalysis negative. Patient declined a pelvic exam. Patient will be discharged home at this time per her request. Patient agrees to follow-up with her primary care doctor for an outpatient ultrasound and further evaluation of this intermittent lower abdominal pain that she has been experiencing for 5 days. Complexity of problems addressed is moderate acute complicated No critical care time Complexity of data reviewed and analyzed is moderate. Test reviewed and analyzed. Clinical correlation made between the laboratory/imaging studies and history and physical examination. Physical exam essentially benign. This correlates with normal work-up. However work-up was limited as patient declined a pelvic exam. However she agrees to follow-up with her primary care doctor to obtain the completion of the work-up. Risk of complication and or risk of morbidity/mortality of patient management is low. No prescription indicated at this time. No surgical decisions required. No social determinants of health present to impede follow-up. Vital stable. Discharge diagnosis is right ovarian cyst and abdominal pain. Time spent to discharge patient approximately 15 minutes. Plan of care established for shared decision making. No social determinants of health present to impede follow-up. Portions of this note were created with voice recognition technology. There may be grammatical, spelling, punctuation or sound alike errors 06/26/23 02:45 Counseled pt/family regarding: lab results, diagnosis - Departure Departure Disposition: Home Clinical Impression: Right ovarian cyst, Abdominal pain Condition: Stable Critical Care Time: No Referrals: JESSICA ANTONIO [Primary Care Provider] - Follow up/PCP as directed Additional Instructions: Discharge/Care Plan MADISON BRIGGS was seen on 06/26/23 in the Emergency Room. The patient was counseled regarding Diagnosis,Lab results, Imaging studies, need for follow up and when to return to the Emergency Room. Prescriptions given: Discharge Note I have spoken with the patient and/or caregivers. I have explained the patient's condition, diagnosis and treatment plan based on the information available to me at this time. I have answered the patient's and/or caregiver's questions and addressed any concerns. The patient and/or caregivers have as good understanding of the patient's diagnosis, condition and treatment plan as can be expected at this point. The vital signs have been stable. The patient's condition is stable and appropriate for discharge from the emergency department. The patient will pursue further outpatient evaluation with the primary care nirmala jacobson or other designated or consulting physician as outlined in the discharge instructions. The patient and/or caregivers are agreeable to this plan of care and follow-up instructions have been explained in detail. The patient and/or caregivers have received these instruction. The patient/and or caregivers are aware that any significant change in condition or worsening of symptoms should prompt an immediate return to this or the closest emergency department or call 911.
[2023-06-26 00:42] LABS: HCG URINE TEST NEGATIVE (NEGATIVE)
[2023-06-26 00:50] LABS: Appearance Clear (Clear); Bacteria None Seen /HPF (None Seen); Bilirubin Negative (Negative); Blood Negative (Negative); Epithelial Cells None Seen /HPF (None Seen); Glucose, Urine Negative (Negative); Hyaline Casts NONE SEEN /LPF (0-2); Ketones Negative (Negative); Leukocyte Esterase Negative (Negative); Nitrite Negative (Negative); Ph 6.5 (4.6-8.0); Protein,Urine Dip Negative (Negative); RBC 0-2 /HPF (0-5); Specific Gravity 1.025 (1.005-1.030); Urobilinogen 0.2 mg/dL (0.2); WBC 0-2 /HPF (0-5)
[2023-06-26 00:54] LABS: ADD URINE CULTURE? NO (NO)
[2023-06-26 01:12] LABS: BASOPHIL % 0.5 % (0.0-0.4); Basophil (Absolute #) 0.04 x10^3/uL (0-0.4); Eosinophil % 7.4 % (0.00-5.0); Eosinophil (Absolute #) 0.58 x10^3/uL (0-0.5); Hematocrit 38.9 % (35-47); Hemoglobin 12.6 g/dL (12.0-16.0); IMMATURE GRAN % 1.3 % (0.00-0.4); Lymphocyte (Absolute #) 2.73 x10^3/uL (1.0-4.6); Lymphocytes % 34.8 % (24.0-44.0); Mean Cell Volume 98.2 fL (78-100); Mean Corpuscular Hemoglobin 31.8 pg (26-32); Mean Corpuscular Hgb Concent. 32.4 g/dL (32-36); Mean Platelet Volume 9.5 fL (7.5-11.0); Monocytes % 6.4 % (0.0-12.0); Neutrophil % 49.6 % (36.0-66.0); Platelet Count 253 x10^3/uL (150-450); Red Blood Count 3.96 x10^6/uL (4.1-5.4); Red Cell Distribution Width 13.2 % (11.5-14.0); White Blood Count 7.9 x10^3/uL (4.0-10.5)
[2023-06-26 01:27] LABS: ALKALINE PHOSPHATASE 85 U/L (38-126); BLOOD UREA NITROGEN 22 mg/dL (7-17); CHLORIDE 103 mmol/L (98-107); Calcium 8.5 mg/dL (8.4-10.2); Carbon Dioxide 25 mmol/L (22-30); Creatinine 1 0.89 mg/dL (0.52-1.04); EST GLOMERULAR FILTRATION RATE > 60.0 ML/MIN; Glucose 83 mg/dL (74-106); SGOT/AST 53 U/L (14-36); SGPT/ALT 63 U/L (0-35); SODIUM 137 mmol/L (137-145); Total Protein 6.7 g/dL (6.3-8.2)
--- NOTE | 2023-06-26 01:53 | XRAY ---
CLINICAL HISTORY:lower abd pain COMPARISON:None TECHNIQUE:CT of the abdomen and pelvis was performed with axial images as well as sagittal and coronal reconstruction images without intravenous contrast. FINDINGS: The liver appears mildly enlarged due to normal anatomy variant of riedl lobe. It appears otherwise normal in morphology unremarkable with no intrahepatic or extrahepatic bile duct dilation. Gallbladder appears partially collapsed but unremarkble. Unremarkable appearing pancreas and spleen. The adrenal glands are normal. The kidneys appear unremarkable with no stone, cysts masses or hydronephrosis. The ureters are normal with no stones. Bladder is unremarkable with no stones. IVC is normal. The stomach appears unremarkable. Unremarkable appearing duodenum. Small Bowel and colon are non-distended with no abnormality No free air and no ascites. No free intraperitoneal air is seen. Uterus appear unremarkable on limited noncontrast images. Suggestion of small right ovarian cyst. Needs ultrasound correlation. No significant pelvic or retroperitoneal lymphadenopathy seen IMPRESSION: Essentially unremarkable unenhanced CT abdomen and pelvis. Electronically Signed by: Loy Ernandez MD. (06/26/2023 00:51:19 MEDIA PROFESSIONAL)
[2023-06-26 02:12] VITALS: BP 94/57; PULSE 59; RESP 18
[2023-06-26 02:15] LABS: CHLAMYDIA DNA NOT DETECTED (NEGATIVE); GC DNA Probe NOT DETECTED (NEGATIVE)
== END 2023-06-26 02:48 | disposition home or self-care (01) ==
LOC: ED 22:43
DX: N83.201 Unspecified ovarian cyst, right side (principal); R10.30 Lower abdominal pain, unspecified; Z72.0 Tobacco use
CPT/HCPCS: 36000; 36415; 74176; 80053; 81001; 81025; 85025; 87491; 87591; 99284

== ENCOUNTER 2023-12-30 19:58 | Emergency (ER) | payer SELFPAY ==
[2023-12-30 20:27] VITALS: BP 94/77; PULSE 55; RESP 18; TEMP 97.9; O2SAT 97
== END 2023-12-30 20:53 | disposition left against medical advice (07) ==
LOC: ED 19:58
DX: Z53.8 Procedure and treatment not carried out for other reasons (principal)
CPT/HCPCS: 99281

== ENCOUNTER → 2024-03-15 | Emergency (ER) | payer SELFPAY | END | disposition left against medical advice (07) | LOC: ED 14:31 | DX: Z53.21 Procedure and treatment not carried out due to patient leaving prior to being seen by health care provider (principal) ==